=== PATIENT | male | born 2000 | race Caucasian/White ===

== ENCOUNTER 2025-03-14 13:48 | Emergency (ER) | payer SELFPAY ==
[2025-03-14] MEDS ORDERED: Sodium Chloride 0.9% 10 ML Syringe FLUSH PRN (15:27)
[2025-03-14] MEDS ORDERED: Sodium Chloride 0.9% 20 ML SDV IV PRN (15:27)
[2025-03-14] MEDS ORDERED: Sodium Chloride 0.9% 2.5 ML Syringe FLUSH PRN (15:27)
[2025-03-14 15:43] LABS: BASOPHILS ABSOLUTE AUTO 0.02 K/uL (0.00-0.20); BASOPHILS PERCENT AUTO 0.3 % (0.0-1.0); EOSINOPHILS ABSOLUTE AUTO 0.09 K/uL (0.00-0.45); EOSINOPHILS PERCENT AUTO 1.3 % (0.0-6.0); HEMATOCRIT 41.9 % (42.0-52.0); HEMOGLOBIN 14.9 g/dL (14.0-18.0); IMMATURE GRAN ABSOLUTE AUTO 0.01 K/uL (0.00-0.05); IMMATURE GRAN PERCENT AUTO 0.1 % (0.0-0.4); LYMPHOCYTES ABSOLUTE AUTO 1.52 K/uL (1.00-4.80); LYMPHOCYTES PERCENT AUTO 22.2 % (24.0-44.0); MEAN CORPUSCULAR HEMOGLOBIN 30.9 pg (28.0-32.0); MEAN CORPUSCULAR HGB CONC 35.6 g/dL (32.0-36.0); MEAN CORPUSCULAR VOLUME 86.9 fL (83.0-99.0); MEAN PLATELET VOLUME 10.8 fL (9.4-12.4); MONOCYTES ABSOLUTE AUTO 1.02 K/uL (0.00-0.80); MONOCYTES PERCENT AUTO 14.9 % (0.0-8.0); NEUTROPHILS ABSOLUTE AUTO 4.19 K/uL (1.80-7.70); NEUTROPHILS PERCENT AUTO 61.2 % (41.0-71.0); PLATELET COUNT,PLT 171 K/uL (150-400); RED BLOOD CELL COUNT 4.82 M/uL (4.52-5.90); WHITE BLOOD CELL COUNT,WBC 6.85 K/uL (3.9-11.3)
[2025-03-14] MEDS: Sodium Chloride 0.9% 1,000 ML IV ONE (15:49)
[2025-03-14 16:00] LABS: INR 1.07 (0.86-1.11); PTT,PARTIAL THROMBOPLSTIN TIME 30.3 SEC (23.9-30.7)
[2025-03-14 16:02] LABS: CALCIUM 8.7 mg/dL (8.5-10.1); CARBON DIOXIDE,CO2 29.4 mmol/L (21.0-32.0); CREATININE 0.9 mg/dL (0.8-1.3); EST CRCL DRUG DOSING (CG) 131.81 mL/min; POTASSIUM,K 3.7 mmol/L (3.5-5.1)
== END 2025-03-14 18:32 | disposition home or self-care (01) ==
LOC: MW.ED 13:48
DX: S00.83XA Contusion of other part of head, initial encounter (principal); W22.8XXA Striking against or struck by other objects, initial encounter; Y93.89 Activity, other specified
CPT/HCPCS: 36415; 70450; 70486; 72125; 80048; 82550; 85025; 85610; 85730; 99283; J7030; 99284

== ENCOUNTER 2025-05-14 14:03 | Emergency (ER) | payer OTHER ==
[2025-05-14] MEDS: Ketorolac 30 MG/ML SDV IM ONE (14:37)
[2025-05-14] MEDS: Bacitracin Oint 1 GM U/D Packet TOP ONE (14:46)
== END 2025-05-14 14:55 | disposition home or self-care (01) ==
LOC: MW.ED 14:03
DX: S90.31XA Contusion of right foot, initial encounter (principal); S90.511A Abrasion, right ankle, initial encounter; Z79.899 Other long term (current) drug therapy; V29.99XA Rider (driver) (passenger) of other motorcycle injured in unspecified traffic accident, initial encounter
CPT/HCPCS: 73610; 73630; 96372; 99283; A9270; J1885